=== PATIENT | male | born 1970 | race Caucasian/White ===

== ENCOUNTER 2020-05-09 13:55 | Inpatient (IN) ==
[2020-05-09] MEDS ORDERED: Ondansetron 4 MG/2 ML VIAL IVP ONE (14:19)
[2020-05-09] MEDS ORDERED: 0.9 % Sodium Chloride 1,000 ML IVC ONE (14:19)
[2020-05-09] MEDS ORDERED: Morphine Sulfate Immed Rel 15 MG TABLET PO STA (14:19)
[2020-05-09] MEDS ORDERED: Isovue-370 500 ML BOTTLE IVP ONE (14:20)
[2020-05-09] MEDS ORDERED: *HR* HYDROmorphone (PF) 1 MG/ML SYRINGE IVP STA (14:23)
[2020-05-09 15:02] LABS: Basophils % 0.3 %; Eosinophils # 0.1 K/mcL (0.0-0.6); Eosinophils % 0.5 %; Hematocrit 47.2 % (37.5-50.1); Hemoglobin 16.5 g/dL (12.9-16.9); Immature Granulocytes % 0.5 % (0-4); Lymphocytes # 1.1 K/mcL (0.6-4.6); Lymphocytes % 11.3 %; Mean Corpuscular Hemoglobin 32.3 pg (28.0-33.3); Mean Corpuscular Volume 92.4 fL (83.0-100.0); Monocytes # 0.7 K/mcL (0.0-1.3); Monocytes % 7.5 %; Neutrophils # 7.7 K/mcL (1.6-8.9); Platelet Count 291 K/mcL (140-400); Red Blood Count 5.11 M/mcL (4.19-5.50); Red Cell Distribution Width 11.8 % (11.5-14.5); Segmented Neutrophils % 79.9 %; White Blood Count 9.6 K/mcL (4.3-11.1)
[2020-05-09 15:21] LABS: Alanine Aminotransferase 51 Units/L (7-52); Albumin 4.4 g/dL (3.5-5.7); Albumin/Globulin Ratio 1.3 (1.1-2.2); Alkaline Phosphatase 49 Units/L (34-104); Aspartate Amino Transferase 26 Units/L (13-39); BUN/Creatinine Ratio 21 (6-26); Bilirubin,Direct 0.2 mg/dL (0.0-0.2); Bilirubin,Indirect 0.5 mg/dL (0.0-1.0); Bilirubin,Total 0.7 mg/dL (0.3-1.0); Blood Urea Nitrogen 18 mg/dL (6-20); Calcium 9.3 mg/dL (8.6-10.3); Carbon Dioxide 23 mEq/L (23-29); Chloride 106 mEq/L (98-107); Globulin 3.3 g/dL (2.4-3.5); Glucose 120 mg/dL (70-105); Lipase 24 Units/L (11-82); Osmolality,Calculated 293 (280-300); Potassium 3.3 mEq/L (3.5-5.1); Sodium 140 mEq/L (136-145); Total Protein 7.7 g/dL (6.4-8.9); eGFR For African Americans > 60 (> 60); eGFR For Non-African Americans > 60 (> 60)
[2020-05-09] MEDS ORDERED: Piperacillin/Tazobactam 3.375 GM in Water for inj. (sterile) 20 ML IVP ONE (16:02)
[2020-05-09] MEDS ORDERED: Ondansetron 4 MG/2 ML VIAL IVP PRN (17:29)
[2020-05-09] MEDS ORDERED: Naloxone 0.4 MG/ML INJ IVP PRN (17:29)
[2020-05-09] MEDS ORDERED: Potassium Chloride 40 MEQ, Lidocaine 1% 2 ML in 0.9 % Sodium Chloride 500 ML IVPB ONE (17:36)
[2020-05-09] MEDS ORDERED: Fluconazole 400 MG/200 ML 400 MG/200 ML BAG IVPB SCH (17:45)
[2020-05-09] MEDS: Ringers Solution, Lactated 1,000 ML IVC SCH (19:46)
[2020-05-09] MEDS: Fluconazole 400 MG/200 ML 400 MG/200 ML BAG IVPB SCH ×2 (20:15→20:23)
[2020-05-09] MEDS: *HR* Heparin 5,000 UNIT/ML VIAL SQ SCH (22:31)
[2020-05-10] MEDS: Piperacillin/Tazobactam 3.375 GM in 0.9 % Sodium Chloride Mini Bag 100 ML IVPB SCH ×3 (00:44→15:06)
[2020-05-10 05:34] LABS: Basophils % 0.3 %; Eosinophils # 0.1 K/mcL (0.0-0.6); Eosinophils % 1.6 %; Hematocrit 41.9 % (37.5-50.1); Immature Granulocytes % 0.6 % (0-4); Lymphocytes % 14.8 %; Mean Corpuscular HGB Conc 34.6 g/dL (31.6-35.5); Mean Corpuscular Hemoglobin 32.6 pg (28.0-33.3); Mean Corpuscular Volume 94.2 fL (83.0-100.0); Mean Platelet Volume 10.1 fL (9.4-12.4); Monocytes # 0.7 K/mcL (0.0-1.3); Monocytes % 9.7 %; Neutrophils # 5.2 K/mcL (1.6-8.9); Platelet Count 246 K/mcL (140-400); Red Blood Count 4.45 M/mcL (4.19-5.50)
[2020-05-10 05:37] LABS: Hemoglobin 14.5 g/dL (12.9-16.9)
[2020-05-10 05:45] LABS: BUN/Creatinine Ratio 18 (6-26); Blood Urea Nitrogen 17 mg/dL (6-20); Calcium 8.6 mg/dL (8.6-10.3); Carbon Dioxide 24 mEq/L (23-29); Chloride 107 mEq/L (98-107); Glucose 137 mg/dL (70-105); Osmolality,Calculated 292 (280-300); Potassium 3.5 mEq/L (3.5-5.1); Sodium 139 mEq/L (136-145); eGFR For African Americans > 60 (> 60); eGFR For Non-African Americans > 60 (> 60)
[2020-05-10 05:57] LABS: C-Reactive Protein 6 mg/L (Less than 10); Lactate Dehydrogenase 147 Units/L (140-271)
[2020-05-10 06:21] LABS: Ferritin 1129 ng/mL (20-250)
[2020-05-10] MEDS: Ringers Solution, Lactated 1,000 ML IVC SCH (09:11)
[2020-05-10] MEDS: *HR* Heparin 5,000 UNIT/ML VIAL SQ SCH ×3 (09:13→21:10)
[2020-05-10] MEDS ORDERED: *HR* LORazepam 2 MG/ML VIAL IVP PRN (10:15)
[2020-05-10] MEDS: Fluconazole 400 MG/200 ML 400 MG/200 ML BAG IVPB SCH (13:28)
[2020-05-10 16:51] LABS: Bilirubin,Urine Negative (Negative); Blood,Urine Negative (Negative); Clarity,Urine Clear (Clear); Color,Urine Light-Yellow (Yellow); Glucose,Urine (UA) Normal (Normal); Ketones,Urine Negative (Negative); Leukocyte Esterase,Urine Negative (Negative); Nitrite,Urine Negative (Negative); PH,Urine 5.5 pH Units (5.0-8.0); Protein,Urine Trace mg/dL (Neg-Trace); Urobilinogen,Urine Normal (Normal)
[2020-05-10] MEDS ORDERED: *HR* Rivaroxaban 10 MG TABLET PO SCH (23:15)
[2020-05-11] MEDS: Piperacillin/Tazobactam 3.375 GM in 0.9 % Sodium Chloride Mini Bag 100 ML IVPB SCH ×4 (00:05→23:43)
[2020-05-11] MEDS ORDERED: *HR* Heparin 5,000 UNIT/ML VIAL IVP ONE (00:21)
[2020-05-11] MEDS ORDERED: *HR* Heparin 5,000 UNIT/ML VIAL IVP PRN ×2 (00:21)
[2020-05-11] MEDS ORDERED: Heparin 25,000UNIT/250ML 1/2NS 25,000 UNIT/250 ML IV.SOLN IVC SCH (00:30)
[2020-05-11 02:31] LABS: Hematocrit 42.4 % (37.5-50.1); Hemoglobin 14.8 g/dL (12.9-16.9); Mean Corpuscular HGB Conc 34.9 g/dL (31.6-35.5); Mean Corpuscular Hemoglobin 31.9 pg (28.0-33.3); Mean Corpuscular Volume 91.4 fL (83.0-100.0); Mean Platelet Volume 9.9 fL (9.4-12.4); Platelet Count 243 K/mcL (140-400); Red Blood Count 4.64 M/mcL (4.19-5.50); Red Cell Distribution Width 11.5 % (11.5-14.5); White Blood Count 8.3 K/mcL (4.3-11.1)
[2020-05-11 02:44] LABS: INR 1.3; Prothrombin Time 15.2 Seconds (9.4-12.1)
[2020-05-11 02:46] LABS: Heparin anti-factor XA UFH 1.69 IU/mL (0.30-0.70)
[2020-05-11 02:51] LABS: BUN/Creatinine Ratio 15 (6-26); Blood Urea Nitrogen 13 mg/dL (6-20); Carbon Dioxide 26 mEq/L (23-29); Chloride 103 mEq/L (98-107); Glucose 96 mg/dL (70-105); Osmolality,Calculated 288 (280-300); Sodium 139 mEq/L (136-145); eGFR For African Americans > 60 (> 60); eGFR For Non-African Americans > 60 (> 60)
[2020-05-11 02:59] LABS: Activated Partial Thrombo Time > 360.0 Seconds (26.0-36.0)
[2020-05-11 04:45] LABS: Heparin anti-factor XA UFH 1.16 IU/mL (0.30-0.70)
[2020-05-11] MEDS: Fluconazole 400 MG/200 ML 400 MG/200 ML BAG IVPB SCH (08:16)
[2020-05-11] MEDS ORDERED: 0.9 % Sodium Chloride 1,000 ML IVC SCH (12:15)
[2020-05-11] MEDS: *HR* Enoxaparin 150 MG/ML SYRINGE SQ SCH ×2 (13:00→21:02)
[2020-05-11] MEDS ORDERED: Potassium Chloride Elixir 20 MEQ/15 ML UDC PO ONE (16:43)
[2020-05-12] MEDS: *HR* Enoxaparin 150 MG/ML SYRINGE SQ SCH ×2 (05:17→16:33)
[2020-05-12 07:14] LABS: Hematocrit 42.7 % (37.5-50.1); Mean Corpuscular HGB Conc 35.1 g/dL (31.6-35.5); Mean Corpuscular Hemoglobin 32.5 pg (28.0-33.3); Mean Corpuscular Volume 92.6 fL (83.0-100.0); Mean Platelet Volume 10.2 fL (9.4-12.4); Platelet Count 221 K/mcL (140-400); Red Blood Count 4.61 M/mcL (4.19-5.50); Red Cell Distribution Width 11.8 % (11.5-14.5)
[2020-05-12 07:28] LABS: BUN/Creatinine Ratio 14 (6-26); Blood Urea Nitrogen 12 mg/dL (6-20); Calcium 8.7 mg/dL (8.6-10.3); Carbon Dioxide 25 mEq/L (23-29); Chloride 104 mEq/L (98-107); Glucose 88 mg/dL (70-105); Osmolality,Calculated 285 (280-300); Potassium 3.1 mEq/L (3.5-5.1); Sodium 138 mEq/L (136-145); eGFR For African Americans > 60 (> 60); eGFR For Non-African Americans > 60 (> 60)
[2020-05-12] MEDS: Piperacillin/Tazobactam 3.375 GM in 0.9 % Sodium Chloride Mini Bag 100 ML IVPB SCH ×2 (07:38→16:33)
[2020-05-12] MEDS: Fluconazole 400 MG/200 ML 400 MG/200 ML BAG IVPB SCH (07:39)
[2020-05-12] MEDS ORDERED: Potassium Chloride Elixir 20 MEQ/15 ML UDC PO ONE (08:00)
[2020-05-12] MEDS ORDERED: Isovue-370 500 ML BOTTLE IVP ONE (10:49)
[2020-05-13] MEDS: *HR* Enoxaparin 150 MG/ML SYRINGE SQ SCH (03:32)
[2020-05-13 07:20] VITALS: BP 138/87
[2020-05-13] MEDS: Fluconazole 400 MG/200 ML 400 MG/200 ML BAG IVPB SCH (07:38)
[2020-05-13] MEDS: Piperacillin/Tazobactam 3.375 GM in 0.9 % Sodium Chloride Mini Bag 100 ML IVPB SCH ×2 (07:38)
== END 2020-05-13 11:16 | disposition home or self-care (01) | DRG 177 ==
LOC: EMEROOARM 13:55 → 3BNU 13:55 → SUATTDRO 17:14 → 3BNU 17:58
PROVIDERS: ADMIT Internal Medicine; ATTEND Internal Medicine